=== PATIENT | male | born 1995 | race Caucasian/White ===

== ENCOUNTER 2022-02-11 15:39 | Emergency (ER) | payer SELFPAY ==
[2022-02-11 15:40] VITALS: BP 111/60; PULSE 67; RESP 16; TEMP 36.9; O2SAT 99; BMI 21.2
--- NOTE | 2022-02-11 15:55 | XR_ITS ---
FINAL REPORT CLINICAL HISTORY: accident, left rib pain around nipple COMPARISON: July 14, 2019 FINDINGS: LEFT RIBS 4 views of the left ribs show no fractures. There is no pneumothorax or pleural fluid collection. The frontal chest radiograph is unremarkable. IMPRESSION: No fracture identified. No pneumothorax. Reviewed, Interpreted and Dictated by Fercho Garcia III, MD Transcribed by Mignon Lawrence Authenticated by Fercho Garcia III, MD on 02/11/2022 04:47:00 PM [facility]
[2022-02-11 16:28] VITALS: BP 111/60; PULSE 67; RESP 16; TEMP 36.9; O2SAT 99; BMI 21.1
--- NOTE | 2022-02-11 16:31 | HMH.EDUTC ---
[facility] [place] Disposition Clinical Impression: Contusion of rib on left side Qualifiers: Encounter type: initial encounter Qualified Code(s): S20.212A - Contusion of left front wall of thorax, initial encounter Disposition: Home, Self-Care Condition on Discharge: Good Instructions: DI for Rib Contusion Additional Instructions: Take the ibuprofen as directed for pain. Take the medications as directed. Follow up with your regular doctor. GO TO THE ER FOR ANY WORSENING SYMPTOMS The muscle relaxer (cyclobenzaprine--Flexeril) will make you drowsy, so don't drive or operate heavy machinery after taking it. Prescriptions: Ibuprofen [Ibuprofen 800mg Tablet] 800 mg PO Q8HP PRN #30 tab PRN Reason: Moderate Pain Transmission Status: Received by [facility] Cyclobenzaprine HCl [Cyclobenzaprine 10mg Tab] 10 mg PO BIDP PRN #20 tab PRN Reason: Muscle Spasm Transmission Status: Received by [facility] Referrals: Michelle Rodriguez MD [Primary Care Provider] - Time of Disposition: 17:32 Medical Decision Making - Medical Records Medical records reviewed: No: I reviewed the patient's medical records. - [place] Inquiry Pt receiving controlled substance: No Vital Signs: 02/11/22 15:40 02/11/22 16:28 02/11/22 18:05 Temperature 98.4 F 98.4 F 98.4 F Temperature Source Oral Oral Pulse Rate 67 Pulse Rate [Left Radial] 67 67 Respiratory Rate 16 16 16 Blood Pressure 111/60 Blood Pressure [Left Arm] 111/60 111/60 Blood Pressure Mean [Left Arm] 77 77 Blood Pressure Source [Left Arm] Automatic Cuff Blood Pressure Position [Left Arm] Sitting 02 Sat by Pulse Oximetry 99 99 Oxygen Delivery Method Room Air [facility] [place] HPI - General Stated complaint: L rib pain Time Seen by Provider: 02/11/22 16:31 Mode of Arrival: Ambulatory Source of Information: Patient Limitations: No Limitations Description of Symptoms (Recalled from Triage Doc. by RN): pt c/o L rib pain. Reports hit rib area on a board last thursday. - History of Present Illness Provider Complaint: He states that 1 week ago he ran in to a board and it hit him on the left side of his chest. Since then he has had pain at the site and pain with coughing and deep breathing. He denies any shortness of breath. - Related Data Previous Rx's Medication Instructions Recorded sulfacetamide sodium 10 % eye drops 1 drp OPHTHALMIC QID 7 Days #15 ml 10/20/19 Cyclobenzaprine HCl 10 mg PO BIDP PRN #20 tab 02/11/22 [Cyclobenzaprine 10mg Tab] Ibuprofen [Ibuprofen 800mg 800 mg PO Q8HP PRN #30 tab 02/11/22 Tablet] Allergies Allergy/AdvReac Type Severity Reaction Status Date / Time No Known Allergies Allergy Verified 02/11/22 16:32 [facility] History - Hepatitis A Screen Attestation statement:: This patient has been screened for Hepatitis A risk factors. I have reviewed the patient's past medical history: Yes Medical History: Denies:: Cancer, Diabetes Mellitus Type 1, Diabetes Mellitus Type 2, Hypertension, MRSA Other Surgeries: Yes: No Previous Surgery Amputation: No Fractures: No - Social History Smoking Status: Current every day smoker Tobacco Type: smokeless tobacco # Packs/Day (cigarettes): 1 Alcohol Intake: never Occupational Status: employed Housing: house Household Members: family Family Hx:: No significant family history ROS Obtained: Yes All systems reviewed & no additional complaints - Constitutional Constitutional: Denies chills, Denies fever(s) - Eyes Eyes: Denies eye discharge - ENT Ears, Nose, Mouth, and Throat: Denies dizziness, Denies otalgia, Denies sore throat - Cardiovascular Cardiovascular: Denies chest pain - Respiratory Respiratory: Denies chest congestion, Denies cough Physical Exam - General General appearance: alert, in no apparent distress - Head Head exam: atraumatic, normocephalic, normal inspection - Eye Eye exam: Present: normal appearance, PERRL, EOMI - ENT ENT e
[2022-02-11 18:05] VITALS: BP 111/60; PULSE 67; RESP 16; TEMP 36.9
== END 2022-02-11 18:05 | disposition home or self-care (01) ==
LOC: ER 15:49 → UTC 15:51
PROVIDERS: Emergency Provider Nurse Practitioner Family; PCP Family Medicine
DX: S20.212A Contusion of left front wall of thorax, initial encounter (principal); F17.210 Nicotine dependence, cigarettes, uncomplicated; Z79.1 Long term (current) use of non-steroidal anti-inflammatories (NSAID); W22.8XXA Striking against or struck by other objects, initial encounter
CPT/HCPCS: 71101; 99213; G0463